=== PATIENT | female | born 1940 | race African-American/Black ===

== ENCOUNTER 2019-04-05 14:18 | Emergency (ER) | payer MEDICARE, OTHER ==
[~2019-04-05] VITALS: Ht 167.6 cm; Wt 47.6 kg
[~2019-04-05 14:18] MED LIST: HYDR25TA4
--- NOTE | 2019-04-05 15:05 | NUR ---
BIB SON FOR CHRONIC HEADACHE. DENIES DIZZINESS, N/V, WEAKNESS/TINGLING SENSATION. TO ER BED 10, HOOKED TO MONITOR, CHANGED TO GOWN, PROVIDED W WARM BLANKET, AWAITING MD BEACH.
--- NOTE | 2019-04-05 15:10 | NUR ---
DR ESTRELLA AT BEDSIDE
--- NOTE | 2019-04-05 15:20 | NUR ---
PT WHEELED OUT VIA WHEELCHAIR FOR CT SCAN
[2019-04-05] MEDS ORDERED: KETOROLAC TROMETHAMINE INJ 30 MG/ML VIAL IV ONE (15:30)
[2019-04-05] MEDS ORDERED: IV NS 0.9% 500 ML BAG IV ONE (15:30)
[2019-04-05] MEDS ORDERED: ATOR40TA PO (15:55)
[2019-04-05] MEDS ORDERED: HYDR-4077 PO (15:55)
[2019-04-05] MEDS ORDERED: ALEN70SO3 PO (15:55)
[2019-04-05 15:56] LABS: EOSINOPHILS % (AUTO) 0.9 % (0.0-6.0); HEMATOCRIT 40 % (33-45); HEMOGLOBIN 13.2 g/dL (11.5-14.8); LYMPHOCYTES # (AUTO) 1.5 /CMM (0.8-4.8); LYMPHOCYTES % (AUTO) 42.1 % (20.0-44.0); MEAN CORPUSCULAR HGB CONC 33 g/dl (31.0-36.0); MEAN CORPUSCULAR VOLUME 99 fL (82-100); MONOCYTES # (AUTO) 0.5 /CMM (0.1-1.30); MONOCYTES % (AUTO) 13.6 % (2.0-12.0); NEUTROPHILS # (AUTO) 1.5 /CMM (1.8-8.9); NEUTROPHILS % (AUTO) 42.4 % (43.0-81.0); PLATELET COUNT (AUTO) 204 /CMM (150-450); RED BLOOD CELL COUNT(AUTO) 4.05 MIL/uL (4.0-5.2); WHITE BLOOD COUNT (AUTO) 3.6 K/uL (4.3-11.0)
[2019-04-05 16:01] LABS: CALCIUM, SERUM 9.7 mg/dL (8.5-10.1); CARBON DIOXIDE 24 mmol/L (21-32); CHLORIDE 103 mmol/L (98-107); CREATININE 1.1 mg/dL (0.6-1.3); GLUCOSE 89 mg/dL (74-106); POTASSIUM 4.1 mmol/L (3.5-5.1); SODIUM SERUM 139 mmol/L (136-145); UREA NITROGEN, BLOOD 24 mg/dL (7-18)
--- NOTE | 2019-04-05 17:22 | NUR ---
IV removed. Catheter intact and site benign. Pressure and 4x4 applied to site. No bleeding noted.Patient discharged to home in stable condition. Written and verbal after care instructions given. Patient verbalizes understanding of instruction.
[2019-04-05 17:23] VITALS: BP 149/87
== END 2019-04-05 17:29 | disposition home or self-care (01) ==
LOC: ER 14:21
DX: R51 Headache (principal); I10 Essential (primary) hypertension; E86.0 Dehydration
CPT/HCPCS: 36415; 70450; 72125; 80048; 85025; 99284; J7040

== ENCOUNTER 2019-04-14 15:27 | Emergency (ER) | payer MEDICARE ==
[~2019-04-14] VITALS: Ht 165.1 cm; Wt 46.3 kg
[~2019-04-14 15:27] MED LIST changes: +ALEN70SO3 PO; +ATOR40TA PO; +HYDR-4077 PO
[2019-04-14 15:53] VITALS: BP 168/92
== END 2019-04-14 16:28 | disposition home or self-care (01) ==
LOC: ER 15:29
DX: G44.209 Tension-type headache, unspecified, not intractable (principal); G89.29 Other chronic pain; I10 Essential (primary) hypertension

== ENCOUNTER 2019-10-26 01:31 | Emergency (ER) | payer MEDICARE ==
[~2019-10-26] VITALS: Ht 167.6 cm; Wt 48.1 kg
[2019-10-26 01:53] LABS: BASOPHILS % (AUTO) 0.7 % (0.0-2.0); EOSINOPHILS % (AUTO) 1.9 % (0.0-6.0); HEMATOCRIT 33 % (33-45); HEMOGLOBIN 10.9 g/dL (11.5-14.8); LYMPHOCYTES # (AUTO) 1.8 /CMM (0.8-4.8); LYMPHOCYTES % (AUTO) 47.8 % (20.0-44.0); MEAN CORPUSCULAR HGB CONC 33 g/dl (31.0-36.0); MEAN CORPUSCULAR VOLUME 102 fL (82-100); MONOCYTES # (AUTO) 0.5 /CMM (0.1-1.30); NEUTROPHILS # (AUTO) 1.4 /CMM (1.8-8.9); NEUTROPHILS % (AUTO) 36.6 % (43.0-81.0); PLATELET COUNT (AUTO) 125 /CMM (150-450); RED BLOOD CELL COUNT(AUTO) 3.21 MIL/uL (4.0-5.2); WHITE BLOOD COUNT (AUTO) 3.8 K/uL (4.3-11.0)
[2019-10-26 02:04] LABS: CALCIUM, SERUM 9.6 mg/dL (8.5-10.1); CARBON DIOXIDE 24 mmol/L (21-32); CHLORIDE 110 mmol/L (98-107); CREATININE 1.1 mg/dL (0.6-1.3); GLUCOSE 123 mg/dL (74-106); POTASSIUM 3.9 mmol/L (3.5-5.1); SODIUM SERUM 146 mmol/L (136-145); UREA NITROGEN, BLOOD 39 mg/dL (7-18)
--- NOTE | 2019-10-26 02:05 | NUR ---
BIBS FROM HOME TO ER BED 9. AAOX4. NO RESP DISTRESS NOTED BUT W/ OCCASIONAL DRY COUGH. AMBULATORY. C/O PALPITATION. PER PT SHE GOT AWAKEN WITH A POUNDING FAST HEARTBEAT. PT DENIES CHEST PAIN. NOTED THAT PT IS TACHYCARDING ON MONITOR IN THE 120'S. PLACED ON MONITOR. MD AT BEDSIDE FOR EVAL. ORDERS RECEIVED NOTED AND CARRIED OUT. IV LINE OBTAINED ON THE R AC 18G. BLOOD DRAWN AND SENT TO GIVEN TO INFORMATION ANALYST AT BEDSIDE. EKG DONE AT BEDSIDE BY EMT. WILL MONITOR PT
[2019-10-26 02:18] LABS: ALANINE AMINOTRANSFERASE 28 U/L (12-78); ALBUMIN 3.9 g/dL (3.4-5.0); ALKALINE PHOSPHATASE 65 U/L (46-116); ASPARTATE AMINOTRANSFERASE 30 U/L (15-37); BILIRUBIN,TOTAL 0.2 mg/dL (0.2-1.0); TOTAL PROTEIN, SERUM 7.3 g/dL (6.4-8.2)
[2019-10-26 02:49] VITALS: BP 116/73
--- NOTE | 2019-10-26 02:49 | NUR ---
Patient discharged to home in stable condition. Written and verbal after care instructions given. Patient verbalizes understanding of instruction.IV removed. Catheter intact and site benign. Pressure and 4x4 applied to site. No bleeding noted. Pt ambulatory with a steady gait
== END 2019-10-26 02:50 | disposition home or self-care (01) ==
LOC: ER 01:33
DX: F41.9 Anxiety disorder, unspecified (principal); I10 Essential (primary) hypertension; F17.200 Nicotine dependence, unspecified, uncomplicated; Z79.899 Other long term (current) drug therapy
CPT/HCPCS: 36415; 71045-TC; 80048-TC; 80076-TC; 84484-TC; 85025-TC; 85730-TC

== ENCOUNTER 2020-01-07 13:49 | Emergency (ER) | payer MEDICARE ==
[~2020-01-07] VITALS: Ht 165.1 cm; Wt 50.8 kg
[~2020-01-07 13:49] MED LIST changes: -HYDR25TA4; +HYDR25TA4 PO
--- NOTE | 2020-01-07 14:10 | NUR ---
c/o chest pain "feels like closing in",can't remember what time this morning. Patient ambulatory with steady gait. No distress noted, attached to the electronic resources librarian.
[2020-01-07] MEDS ORDERED: ACETAMINOPHEN 325 MG TABLET PO ONE (15:00)
[2020-01-07] MEDS ORDERED: ACETAMINOPHEN 325 MG TABLET ONE (15:09)
[2020-01-07 15:25] LABS: BASOPHILS % (AUTO) 1.3 % (0.0-2.0); EOSINOPHILS % (AUTO) 1.9 % (0.0-6.0); HEMATOCRIT 38 % (33-45); HEMOGLOBIN 12.7 g/dL (11.5-14.8); LYMPHOCYTES # (AUTO) 1.3 /CMM (0.8-4.8); LYMPHOCYTES % (AUTO) 38.9 % (20.0-44.0); MEAN CORPUSCULAR HGB CONC 33 g/dl (31.0-36.0); MEAN CORPUSCULAR VOLUME 103 fL (82-100); MONOCYTES # (AUTO) 0.6 /CMM (0.1-1.30); NEUTROPHILS # (AUTO) 1.4 /CMM (1.8-8.9); NEUTROPHILS % (AUTO) 40.9 % (43.0-81.0); PLATELET COUNT (AUTO) 201 /CMM (150-450); RED BLOOD CELL COUNT(AUTO) 3.72 MIL/uL (4.0-5.2); WHITE BLOOD COUNT (AUTO) 3.4 K/uL (4.3-11.0)
--- NOTE | 2020-01-07 15:30 | NUR ---
patient refused to have iv inserted. Per patient, "i'm not planning to stay here"
[2020-01-07] MEDS ORDERED: MEMA10TA56 PO (15:33)
[2020-01-07] MEDS ORDERED: VALS160T29 PO (15:33)
[2020-01-07] MEDS ORDERED: AMLO10TA7 PO (15:33)
[2020-01-07] MEDS ORDERED: METO-357 PO (15:33)
[2020-01-07 15:36] LABS: CALCIUM, SERUM 9.7 mg/dL (8.5-10.1); CARBON DIOXIDE 27 mmol/L (21-32); CHLORIDE 106 mmol/L (98-107); GLUCOSE 107 mg/dL (74-106); POTASSIUM 4.2 mmol/L (3.5-5.1); SODIUM SERUM 143 mmol/L (136-145); UREA NITROGEN, BLOOD 40 mg/dL (7-18)
[2020-01-07] MEDS ORDERED: ASPIRIN 325 MG TABLET ONE (16:12)
[2020-01-07] MEDS ORDERED: IV NS 0.9% 1,000 ML BAG IV ONE (16:30)
[2020-01-07] MEDS ORDERED: ASPIRIN 325 MG TABLET PO ONE (16:30)
--- NOTE | 2020-01-07 16:30 | NUR ---
Dr. Pemberton at bedside.
[2020-01-07 16:36] LABS: EOSINOPHILS % (MANUAL) 2 % (0-4); LYMPHOCYTES % (MANUAL) 38 % (16-48); MONOCYTES % (MANUAL) 18 % (0-11.0); NEUTROPHILS % (MANUAL) 42 (42-76)
--- NOTE | 2020-01-07 16:39 | NUR ---
Patient does not wish to proceed with medical care recommended by Dr. Pemberton. Patient given information related to possible complications, up to and including , which could occur as a result of leaving the hospital at this time. Patient verbalizes understanding of risks involved due to leaving against medical advice. Patient has signed AMA form.
[2020-01-07 16:41] VITALS: BP 154/79
== END 2020-01-07 16:41 | disposition left against medical advice (07) ==
LOC: ER 13:49
DX: R07.89 Other chest pain (principal); R51 Headache; E86.0 Dehydration; D72.819 Decreased white blood cell count, unspecified; I10 Essential (primary) hypertension; E78.5 Hyperlipidemia, unspecified; M81.0 Age-related osteoporosis without current pathological fracture; F17.200 Nicotine dependence, unspecified, uncomplicated; Z79.899 Other long term (current) drug therapy
CPT/HCPCS: 36415; 80048-TC; 84484-TC; 85025-TC

== ENCOUNTER 2020-10-14 14:43 | Emergency (ER) | payer MEDICARE ==
[~2020-10-14] VITALS: Ht 167.6 cm; Wt 52.2 kg
[~2020-10-14 14:43] MED LIST changes: +AMLO-213 PO; -HYDR-4077 PO; +MEMA10TA56 PO; +METO-357 PO; +VALS160T29 PO
[2020-10-14] MEDS ORDERED: KETOROLAC TROMETHAMINE 15 MG/ML VIAL ONE (15:35)
[2020-10-14] MEDS: KETOROLAC TROMETHAMINE INJ 30 MG/ML VIAL IM ONE (15:41)
[2020-10-14 15:56] VITALS: BP 142/90
== END 2020-10-14 15:57 | disposition home or self-care (01) ==
LOC: ER 14:46
DX: G43.909 Migraine, unspecified, not intractable, without status migrainosus (principal); I10 Essential (primary) hypertension; Z60.2 Problems related to living alone; Z79.899 Other long term (current) drug therapy
CPT/HCPCS: J1885

== ENCOUNTER 2020-12-25 23:22 | Emergency (ER) | payer MEDICARE ==
[~2020-12-25] VITALS: Ht 162.6 cm; Wt 47.6 kg
[2020-12-25 23:28] VITALS: BP 179/91
[2020-12-25] MEDS ORDERED: KETOROLAC TROMETHAMINE INJ 30 MG/ML VIAL ONE (23:56)
[2020-12-26] MEDS ORDERED: METOCLOPRAMIDE HCL 10 MG TABLET PO ONE
[2020-12-26] MEDS ORDERED: KETOROLAC TROMETHAMINE INJ 30 MG/ML VIAL IM ONE
[2020-12-26] MEDS ORDERED: SUMATRIPTAN SUCCINATE 25 MG TABLET PO ONE
--- NOTE | 2020-12-26 00:28 | NUR ---
Patient discharged to home in stable condition. Written and verbal after care instructions given. Patient verbalizes understanding of instruction.
== END 2020-12-26 00:37 | disposition home or self-care (01) ==
LOC: ER 23:27
DX: G44.209 Tension-type headache, unspecified, not intractable (principal); I10 Essential (primary) hypertension; F17.200 Nicotine dependence, unspecified, uncomplicated; Z60.2 Problems related to living alone; Z79.899 Other long term (current) drug therapy
CPT/HCPCS: 96372; 99283; J1885

== ENCOUNTER 2021-05-16 12:08 | Emergency (ER) | payer MEDICARE ==
[~2021-05-16] VITALS: Ht 162.6 cm; Wt 42.2 kg
[2021-05-16 12:17] VITALS: BP 148/83
--- NOTE | 2021-05-16 12:33 | NUR ---
PT STATED SHE FEELS MUCH BETTER NOW AND DOESNT WANT TO WAIT FOR THE DOCTOR.
--- NOTE | 2021-05-16 12:34 | NUR ---
Patient eloped from facility. ER MD notified.
== END 2021-05-16 12:35 | disposition left against medical advice (07) ==
LOC: ER 12:08
DX: Z53.21 Procedure and treatment not carried out due to patient leaving prior to being seen by health care provider (principal); R51.9 Headache, unspecified; R09.81 Nasal congestion; I10 Essential (primary) hypertension

== ENCOUNTER 2021-05-17 15:12 | Emergency (ER) | payer MEDICARE, OTHER ==
[~2021-05-17] VITALS: Ht 167.6 cm; Wt 42.2 kg
[2021-05-17] MEDS ORDERED: KETOROLAC TROMETHAMINE INJ 30 MG/ML VIAL IV ONE (15:30)
[2021-05-17] MEDS ORDERED: PROCHLORPERAZINE EDISYLATE 10 MG/2 ML VIAL IVP ONE (15:30)
[2021-05-17] MEDS ORDERED: IV NS 0.9% 500 ML BAG IV ONE (15:30)
[2021-05-17] MEDS ORDERED: diphenhydrAMINE HCL 50 MG/ML VIAL IV ONE (15:30)
--- NOTE | 2021-05-17 15:30 | NUR ---
headache on and off for years 10/10 pain scale. Patient a/ox4, breathing even and unlabored, no sob noted. Needs attended.
[2021-05-17] MEDS ORDERED: PROCHLORPERAZINE EDISYLATE 10 MG/2 ML VIAL ONE (15:37)
[2021-05-17] MEDS ORDERED: KETOROLAC TROMETHAMINE 15 MG/ML VIAL ONE (15:37)
[2021-05-17] MEDS ORDERED: diphenhydrAMINE HCL 50 MG/ML VIAL ONE (15:37)
[2021-05-17 16:46] VITALS: BP 131/87
--- NOTE | 2021-05-17 16:46 | NUR ---
PATIENT A/OX4, BREATHING EVEN AND UNLABORED, NOS OB NOTED, NEEDS ATTENDED, KEPT COMFORTABLE. AMBULATORY WITH STEADY GAIT. DENIES ANY HEADACHE. IV removed. Catheter intact and site benign. Pressure and 4x4 applied to site. No bleeding noted.Patient discharged to home in stable condition. Written and verbal after care instructions given. Patient verbalizes understanding of instruction.
== END 2021-05-17 16:46 | disposition home or self-care (01) ==
LOC: ER 15:16
DX: G44.229 Chronic tension-type headache, not intractable (principal); I10 Essential (primary) hypertension; F17.200 Nicotine dependence, unspecified, uncomplicated; Z60.2 Problems related to living alone; Z79.899 Other long term (current) drug therapy
CPT/HCPCS: 96374; 96375; 99283; J0780; J1200; J1885; J7040

== ENCOUNTER 2021-06-02 14:24 | Emergency (ER) | payer OTHER ==
[~2021-06-02] VITALS: Ht 167.6 cm; Wt 44.5 kg
[2021-06-02 14:25] VITALS: BP 155/74
[2021-06-02] MEDS ORDERED: KETOROLAC TROMETHAMINE INJ 30 MG/ML VIAL ONE (14:49)
[2021-06-02] MEDS ORDERED: PROCHLORPERAZINE EDISYLATE 10 MG/2 ML VIAL ONE (14:49)
[2021-06-02] MEDS ORDERED: KETOROLAC TROMETHAMINE INJ 60 MG/2 ML VIAL IM ONE (15:00)
[2021-06-02] MEDS ORDERED: PROCHLORPERAZINE EDISYLATE 10 MG/2 ML VIAL IM ONE (15:00)
--- NOTE | 2021-06-02 15:07 | NUR ---
pt refused iv and blood draw
--- NOTE | 2021-06-02 15:08 | NUR ---
Patient discharged to home in stable condition. Written and verbal after care instructions given. Patient verbalizes understanding of instruction. Pt ambulatory with a steady gait
== END 2021-06-02 15:09 | disposition home or self-care (01) ==
LOC: ER 14:31
DX: G44.229 Chronic tension-type headache, not intractable (principal); I10 Essential (primary) hypertension; F10.10 Alcohol abuse, uncomplicated; F17.200 Nicotine dependence, unspecified, uncomplicated; Y90.9 Presence of alcohol in blood, level not specified; Z60.2 Problems related to living alone; Z79.899 Other long term (current) drug therapy
CPT/HCPCS: 96372 ×2; 99283; J0780; J1885

== ENCOUNTER 2021-08-07 16:33 | Emergency (ER) | payer OTHER ==
[~2021-08-07] VITALS: Ht 165.1 cm; Wt 49.9 kg
--- NOTE | 2021-08-07 16:50 | NUR ---
BIB SELF C/O HEADACHE X 2 DAYS. RATES PAIN 6/10. DENIES CHANGE IN VISION OR HEARING. WILL CONTINUE TO MONITOR THE PATIENT.
[2021-08-07] MEDS ORDERED: PROCHLORPERAZINE EDISYLATE 10 MG/2 ML VIAL IM ONE (17:30)
[2021-08-07] MEDS ORDERED: KETOROLAC TROMETHAMINE INJ 30 MG/ML VIAL IM ONE (17:30)
[2021-08-07] MEDS ORDERED: KETOROLAC TROMETHAMINE 15 MG/ML VIAL ONE (17:30)
[2021-08-07] MEDS ORDERED: PROCHLORPERAZINE EDISYLATE 10 MG/2 ML VIAL ONE (17:30)
--- NOTE | 2021-08-07 18:00 | NUR ---
Patient discharged to home in stable condition. Written and verbal after care instructions given. Patient verbalizes understanding of instruction. Patient ambulatory with a steady gait.
[2021-08-07 18:01] VITALS: BP 131/76
== END 2021-08-07 18:01 | disposition home or self-care (01) ==
LOC: ER 16:47
DX: G44.229 Chronic tension-type headache, not intractable (principal); I10 Essential (primary) hypertension; F17.200 Nicotine dependence, unspecified, uncomplicated; Z60.2 Problems related to living alone; Z79.899 Other long term (current) drug therapy
CPT/HCPCS: 96372 ×2; 99284; J0780; J1885

== ENCOUNTER 2021-10-03 16:41 | Emergency (ER) | payer OTHER ==
[~2021-10-03] VITALS: Ht 165.1 cm; Wt 44.5 kg
[2021-10-03 16:56] VITALS: BP 147/90
--- NOTE | 2021-10-03 17:28 | NUR ---
Patient does not wish to proceed with medical care recommended by Dr. DAS. Patient given information related to possible complications, up to and including , which could occur as a result of leaving the hospital at this time. Patient verbalizes understanding of risks involved due to leaving against medical advice. Patient has signed AMA form.
== END 2021-10-03 17:29 | disposition left against medical advice (07) ==
LOC: ER 16:48
DX: Z53.21 Procedure and treatment not carried out due to patient leaving prior to being seen by health care provider (principal); R51.9 Headache, unspecified; I10 Essential (primary) hypertension

== ENCOUNTER → 2023-01-12 | Emergency (ER) | payer OTHER ==
[~2023-01-12] VITALS: Ht 160 cm; Wt 45.8 kg
[~2023-01-12] MED LIST changes: +HYDROCODONE/APAP 5/325MG TABLET ONE; +HYDROCODONE/APAP 5/325MG TABLET PO ONE
--- NOTE | 2023-01-12 16:28 | NUR ---
PT BIBRA FROM HOME, PER EMS REPORT, PT IS C/O HEADACHE AND BACK PAIN, DEMENTED NOT A RELIABLE HISTORIAN. STABLE VITALS MANAGER RESEARCH DEVELOPMENT. AWAITING MD BEACH.
--- NOTE | 2023-01-12 16:35 | NUR ---
DR ESTRELLA AT BEDSIDE FOR EVAL.
--- NOTE | 2023-01-12 18:43 | NUR ---
CALLED [facility] [phone] DR. JOSE Figueroa WILL CALL US BACK.
--- NOTE | 2023-01-12 19:01 | NUR ---
ZAC SON [phone]
--- NOTE | 2023-01-12 19:25 | NUR ---
REPORT GIVEN TO [facility] INSTRUCTOR NURSE FORD FOR JUAN
--- NOTE | 2023-01-12 19:26 | NUR ---
[facility] PAGED WAITING CALL BACK REGARDING UPDATE/ETA FOR AMBULANCE GOING BACK HOME
--- NOTE | 2023-01-12 20:00 | NUR ---
[facility]SP[facility] FOR D/C [facility] [id number]
--- NOTE | 2023-01-12 20:15 | NUR ---
Patient discharged to home in stable condition. Written and verbal after care instructions given. Patient verbalizes understanding of instruction. Neighbor Shreya picked up pt.
[2023-01-12 20:34] VITALS: BP 140/78
== END | disposition home or self-care (01) ==
LOC: ER 16:19
DX: M54.50 Low back pain, unspecified (principal); F03.90 Unspecified dementia, unspecified severity, without behavioral disturbance, psychotic disturbance, mood disturbance, and anxiety; I10 Essential (primary) hypertension; F17.200 Nicotine dependence, unspecified, uncomplicated; Z60.2 Problems related to living alone; Z79.899 Other long term (current) drug therapy; W19.XXXA Unspecified fall, initial encounter; Y93.89 Activity, other specified; Y92.89 Other specified places as the place of occurrence of the external cause; Y99.8 Other external cause status
CPT/HCPCS: 70450-TC; 72131-TC

== ENCOUNTER 2023-01-18 12:43 | Emergency (ER) | payer OTHER ==
[~2023-01-18] VITALS: Ht 165.1 cm; Wt 43.5 kg
[~2023-01-18 12:43] MED LIST changes: -HYDROCODONE/APAP 5/325MG TABLET ONE; -HYDROCODONE/APAP 5/325MG TABLET PO ONE
[2023-01-18] MEDS ORDERED: IV NS 0.9% 1,000 ML BAG IV ONE (15:00)
--- NOTE | 2023-01-18 15:32 | NUR ---
[id number], from home, c/o low back and neck pain x 2 days, denies fall. on room air, breathing evenly and unlabored. Kept comfortable, will continue to monitor accordingly.
[2023-01-18 15:45] LABS: BASOPHILS % (AUTO) 0.2 % (0.0-2.0); EOSINOPHILS % (AUTO) 0.1 % (0.0-6.0); HEMATOCRIT 38 % (33-45); HEMOGLOBIN 12.3 g/dL (11.5-14.8); LYMPHOCYTES # (AUTO) 0.6 K/uL (0.8-4.8); MEAN CORPUSCULAR HGB CONC 33 g/dl (31.0-36.0); MEAN CORPUSCULAR VOLUME 104 fL (82-100); MONOCYTES # (AUTO) 0.9 K/uL (0.1-1.30); MONOCYTES % (AUTO) 12.5 % (2.0-12.0); NEUTROPHILS # (AUTO) 5.5 K/uL (1.8-8.9); NEUTROPHILS % (AUTO) 79.2 % (43.0-81.0); PLATELET COUNT (AUTO) 368 K/uL (150-450); RED BLOOD CELL COUNT(AUTO) 3.65 MIL/uL (4.0-5.2); WHITE BLOOD COUNT (AUTO) 6.9 K/uL (4.3-11.0)
[2023-01-18 15:56] LABS: CALCIUM, SERUM 9.8 mg/dL (8.5-10.1); CARBON DIOXIDE 26 mmol/L (21-32); CHLORIDE 100 mmol/L (98-107); CREATININE 0.8 mg/dL (0.6-1.3); GLUCOSE 93 mg/dL (74-106); POTASSIUM 2.9 mmol/L (3.5-5.1); SODIUM SERUM 137 mmol/L (136-145); UREA NITROGEN, BLOOD 21 mg/dL (7-18)
[2023-01-18 16:07] LABS: ALANINE AMINOTRANSFERASE 14 U/L (12-78); ALKALINE PHOSPHATASE 84 U/L (46-116); ASPARTATE AMINOTRANSFERASE 20 U/L (15-37); BILIRUBIN,DIRECT 0.2 mg/dL (0.0-0.2); BILIRUBIN,TOTAL 0.9 mg/dL (0.2-1.0); TOTAL PROTEIN, SERUM 8.3 g/dL (6.4-8.2)
--- NOTE | 2023-01-18 16:26 | NUR ---
COVID SWAB TAKEN
--- NOTE | 2023-01-18 16:37 | NUR ---
CALLED [facility] [phone] DR. KNUTSON WILL CALL US BACK.
--- NOTE | 2023-01-18 17:33 | NUR ---
[facility] INFO: [facility] DR. GALAN [phone] FOR REPORT. [facility] ETA [phone]
[2023-01-18] MEDS ORDERED: POTASSIUM CHLORIDE 20 MEQ TAB.PRT.SR PO ONE ×2 (18:30→18:49)
[2023-01-18] MEDS ORDERED: hydrALAZINE HCL IV 20 MG VIAL ONE (19:08)
[2023-01-18 19:19] VITALS: BP 236/106
--- NOTE | 2023-01-18 19:20 | NUR ---
patient picked up via PA going to [facility] in no distress.
[2023-01-18 19:28] LABS: BILIRUBIN,URINE NEGATIVE (NEGATIVE); COLOR,URINE YELLOW (YELLOW); LEUKOCYTE ESTERASE ,URINE NEGATIVE (NEGATIVE); NITRITE, URINE NEGATIVE (NEGATIVE); PH,URINE 6.5 (5.0-8.0); PROTEIN,URINE 2+ mg/dl (NEGATIVE); UGLUCOSE NEGATIVE (NEGATIVE); UROBILINOGEN,URINE 0.2 EU/dL (0.2)
[2023-01-18] MEDS ORDERED: hydrALAZINE HCL IV 20 MG VIAL IV ONE (19:30)
[2023-01-18 19:42] LABS: BACTERIA,URINE 1+ /HPF (None Seen); SQUAMOUS EPITHELIAL CELL,UR Moderate /HPF (None Seen)
== END 2023-01-18 19:20 | disposition short-term general hospital (02) ==
LOC: ER 12:45
DX: S09.90XA Unspecified injury of head, initial encounter (principal); R55 Syncope and collapse; M54.50 Low back pain, unspecified; M54.2 Cervicalgia; G89.29 Other chronic pain; I50.9 Heart failure, unspecified; E87.6 Hypokalemia; E86.0 Dehydration; D75.89 Other specified diseases of blood and blood-forming organs; E88.09 Other disorders of plasma-protein metabolism, not elsewhere classified; F03.90 Unspecified dementia, unspecified severity, without behavioral disturbance, psychotic disturbance, mood disturbance, and anxiety; E78.5 Hyperlipidemia, unspecified; F17.200 Nicotine dependence, unspecified, uncomplicated; I11.0 Hypertensive heart disease with heart failure; Z79.899 Other long term (current) drug therapy; Z60.2 Problems related to living alone; Z20.822 Contact with and (suspected) exposure to COVID-19; W18.39XA Other fall on same level, initial encounter; Y93.89 Activity, other specified; Y92.89 Other specified places as the place of occurrence of the external cause; Y99.8 Other external cause status
CPT/HCPCS: 99285; 72125; 96374; 71045; 96361; 87426; 93005; 70450; 85025; 80048; 80076; 81001; 36415; 84484; 85730; 83880; J0360; J7030; C9803